=== PATIENT | female | born 1970 | race African-American/Black ===

== ENCOUNTER 2017-09-28 05:24 | Day surgery (SDC) | payer BC ==
[~2017-09-28] VITALS: Ht 170.2 cm; Wt 96.2 kg
--- NOTE | ~2017-09-28 | H ---
[facility] [place] [address] HISTORY AND PHYSICAL Name: NOEMY CRAIN Room #: PRE [facility] M..#: [id number] Admission: Attend Phys: Oleksandr Healy, Discharge: Date of : 72 Report #: [id number] THIS REPORT FOR: //name// CC: Oleksandr Houston She is scheduled for outpatient surgery at [facility] on 09/28/2017. REASON FOR SURGERY: Abnormal uterine bleeding. HISTORY OF PRESENT ILLNESS: This is a 46-year-old who has had a longstanding history of abnormal uterine bleeding with menorrhagia and dysmenorrhea. She had a normal Pap smear in November 2016 although she has had a prior history of abnormal Pap smears. She had 2 prior vaginal deliveries. She also had 1 spontaneous miscarriage as well as 1 therapeutic . She has had a prior bilateral tubal ligation. 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 She has had some history of hypertension. Her primary care physician is Dr. Stephany Houston. She has been seen by Dr. Houston for abnormal uterine bleeding. She was referred to our office for further evaluation. On pelvic ultrasound, her uterus measures 10 cm in length, endometrium was 11.6 mm. She did have a uterine fibroid measuring 5.7 x 3.1 x 5.2 cm. She did undergo an endometrial biopsy in May 2017. Endometrial biopsy showed secretory endometrium with possible polyp. There was no evidence of hyperplasia or malignancy. After discussing treatment options due to her abnormal uterine bleeding, she has elected to have further evaluation with a hysteroscopy and D and C and then if indicated removal of an endometrial polyp and endometrial ablation. The procedure, risk, recovery has been fully discussed with the patient. PAST MEDICAL HISTORY: Include 2 vaginal deliveries. She has had benign tumor removed from her right adrenal gland. She does have a history of hypertension. FAMILY HISTORY: Positive for diabetes and breast cancer and hypertension. SOCIAL HISTORY: She is employed, has never smoked and is . ALLERGIES: None. CURRENT MEDICATION: Levocetirizine 1 daily. REVIEW OF SYSTEMS: Positive for the abnormal uterine bleeding with clotting and cramping. She denies any fever or chills. No nausea, vomiting. No diarrhea, no dysuria. No chest pain or shortness of breath. PHYSICAL EXAMINATION: GENERAL: She is 5 feet 5 inches with a weight of 211 pounds and BMI of 35. [address] [address] HISTORY AND PHYSICAL Name: NOEMY CRAIN Room #: PRE [facility] M.R.#: [id number] Admission: Attend Phys: Oleksandr Healy, Discharge: Date of : 72 Report #: [id number] LUNGS: Clear. HEART: She had a regular rate and rhythm. NECK: Revealed no thyroid nodules. No supraclavicular adenopathy. BREASTS: Without masses or pain. ABDOMEN: Soft, nontender, no masses, rebound or guarding. PELVIC: There is no evidence of any vulvar or vaginal lesions. Bimanual is without masses or pain. IMPRESSION: Abnormal uterine bleeding, possible endometrial polyp with fibroids. At this time, she is to undergo further evaluation with a hysteroscopy and D and C. If indicated, to proceed with endometrial ablation. The procedure, risk and recovery have been discussed with the patient. <ELECTRONICALLY SIGNED> By: Oleksandr Healy MD 09/25/17 1436 1312 1341 Oleksandr Healy MD /nt
--- NOTE | ~2017-09-28 | EKG ---
[place] [address] [facility] [place] [address] ELECTROCARDIOGRAM REPORT Name: NOEMY CRAIN Room #: DEP [facility]#: [id number] Admission: 09/28/17 Attend Phys: Oleksandr Healy, Discharge: 09/28/17 Date of : 72 Report #: [id number] THIS REPORT FOR: //name// [facility] Test Date: 2017-09-28 Test Time: 06:32:45 Pat Name: NOEMY CRAIN Department: Room: 150 5 Gender: F Minibus Driver: NATHALIA : 1970 Requested By: Oleksandr Healy Order Number: [id number] MD: Mir Mckeon Measurements Intervals [place] Rate: 90 P: 54 OR: 134 QRS: 7 QRSD: 92 T: 23 QT: 369 QTc: 452 Interpretive Statements Sinus rhythm RSR' in V1 or V2, right VCD Compared to ECG 08/04/2014 13:36:23 No significant change was found Electronically Signed On 09-28-2017 16:01:32 [employer]IING INSTRU[employer] by Mir Mckeon [email or web address] <ELECTRONICALLY SIGNED> By: Mir Mckeon MD, [facility] 09/28/17 1601 0632 Mir Mckeon MD, [facility] /EPI
--- NOTE | ~2017-09-28 | S ---
[facility] [place] [address] SURGICAL PATH RPT PROCEDURE Name: KIRT CRAIN Room #: DEP [facility] M..#: [id number] Admission: 09/28/17 Date of : 72 Discharge: 09/28/17 Report #: [id number] Path Case #: [id number] PATHOLOGY REPORT COLLECTION DATE: 09/28/2017 RECEIVED DATE: 09/28/2017 SUBMITTING PHYS: Dr.Michael Healy OTHER PHYS: Dr. Stephany Houston SPECIMEN(S) RECEIVED: A.Endocervical B.Endometrial * * * * * * * * * * * * FINAL DIAGNOSIS: A. Uterus, endocervical, biopsy: - Few strips of benign endocervical epithelium without any dysplasia. - Fragment of lower uterine segment with tubal metaplasia; negative for hyperplasia or malignancy. B. Uterus, endometrial, biopsy: - Mid to late secretory phase endometrium. - Negative for hyperplasia, atypia or malignancy. (IUV:db; 09/29/2017) PATHOLOGIST: Sruthi Holloway M.D. REPORT ELECTRONICALLY SIGNED BY: Sruthi Holloway M.D. DATE/TIME: 09/29/2017 15:33 * * * * * * * * * * * * GROSS PATHOLOGY: A. Received in formalin labeled "Kirt Crain, endocervical" and consists of a 0.3 x 0.2 x 0.2 cm aggregate of blood tinged mucoid material. The specimen is totally submitted as A1. B. Received in formalin labeled "Kirt Crain, endometrial" and consists of a 1.4 x 1.0 x 0.7 cm aggregate of predominantly blood clot. The specimen is totally submitted as B1. (EDDIE; 09/28/2017) CLINICAL HISTORY: Abnormal uterine bleeding, menorrhagia INITIAL CPT CODE(S): A; 72674 B; 66071 Professional services performed by [facility] at [facility] [address] [place] [address] SURGICAL PATH RPT PROCEDURE Name: KIRT CRAIN Room #: DEP [facility] M.R.#: [id number] Admission: 09/28/17 Date of : 72 Discharge: 09/28/17 Report #: [id number] Path Case #: [id number] [facility] [address] [facility] , [place] [address] Technical services performed by [facility] at [address] [place] [address], [facility] [address] [address]. [facility] [address] [place] [address] PHONE: [phone] DIRECTOR: Luis Joshi M.D. * * * END OF REPORT * * *
--- NOTE | ~2017-09-28 | O ---
[facility] [place] [address] OPERATIVE REPORT Name: NOEMY CRAIN Room #: [facility]..#: [id number] Admission: 09/28/17 Attend Phys: Oleksandr Healy, Discharge: 09/28/17 Date of : 72 Report #: [id number] THIS REPORT FOR: //name// CC: Oleksandr Helay Stephany Houston DATE OF SERVICE: 09/28/2017 PREOPERATIVE DIAGNOSIS: Abnormal uterine bleeding with menorrhagia. She had a preoperative endometrial biopsy which showed no signs of hyperplasia or malignancy. POSTOPERATIVE DIAGNOSIS: Abnormal uterine bleeding with menorrhagia. She had a preoperative endometrial biopsy which showed no signs of hyperplasia or malignancy, with final pathology being deferred. PROCEDURE: Hysteroscopy with D and C and endometrial ablation using NovaSure. SURGEON: Oleksandr Healy M.D. ANESTHESIA: General. COMPLICATIONS: None. ESTIMATED BLOOD LOSS: None. DESCRIPTION OF THE OPERATION: The patient was taken to the operating room and given adequate anesthesia. She was placed in the stirrups. She was prepped and draped. Her bladder was drained. A weighted speculum was placed in the posterior vagina. The anterior lip of the cervix was grasped with a tenaculum. Initially, endocervical curettage was performed. The uterus gently sounded to 9.5 cm. Cervical os dilated and the hysteroscope was introduced. Endometrial cavity was well visualized. Tubal ostia were identified bilaterally. There was some thickened tissue anteriorly, but no definitive masses or polyps seen. At this point, the hysteroscope was removed. Endometrial curettings were performed throughout the endometrial cavity. All tissue was sent to pathology. At this point, we proceeded with an endometrial ablation using the NovaSure. The uterus had been dilated to allow the NovaSure to be easily placed up to the fundus. The length was set at 6.5, and with appropriate manipulations, the width was consistent at 4.8. Those settings were placed on the machine. Cavity assessment was performed without difficulty. The procedure was then performed until the procedure complete light came on. At this point, NovaSure instrument was removed. There were no difficulties. There was no bleeding. Tenaculum removed from the anterior cervix. It was hemostatic. The weighted speculum was removed. The cervix was hemostatic. There was no bleeding. The patient [address] [address] OPERATIVE REPORT Name: NOEMY CRAIN Room #: DEP [facility].#: [id number] Admission: 09/28/17 Attend Phys: Oleksandr Healy, Discharge: 09/28/17 Date of : 72 Report #: [id number] tolerated the procedure well. She was placed back in the supine position and taken to the recovery room in stable condition. <ELECTRONICALLY SIGNED> By: Oleksandr Healy MD 09/28/17 1242 0902 0920 Oleksandr Healy MD /nt
[~2017-09-28 05:24] MED LIST: APAP W/CODEINE1 TA2 PO; CIPROFLOXACIN500 M1 PO; IBUPROFEN 200200 M1 PO; IBUPROFEN 600600 M1 PO; NORCO 5-325 TA1 EACH PO; PROTONIX40 M1 PO; THERAFLU COLD1 EAC1 PO; ULTRAM 50MG TAB50 MG PO
[2017-09-28 06:59] LABS: HEMATOCRIT 37.6 % (37.0-47.0); HEMOGLOBIN 12.6 gm/dL (12.0-15.0)
[2017-09-28 08:00] VITALS: BP 120/69
== END 2017-09-28 09:35 | disposition home or self-care (01) ==
LOC: OR 05:24 → TBA 05:25 → OR 09:23
PROVIDERS: Obstetrics & Gynecology
DX: N92.0 Excessive and frequent menstruation with regular cycle (principal); I10 Essential (primary) hypertension; K21.9 Gastro-esophageal reflux disease without esophagitis; Z98.890 Other specified postprocedural states; Z79.899 Other long term (current) drug therapy; Z82.49 Family history of ischemic heart disease and other diseases of the circulatory system; Z80.3 Family history of malignant neoplasm of breast; Z83.3 Family history of diabetes mellitus
CPT/HCPCS: 50010; 50101; 54173; 62110; 62900; 70005